=== PATIENT | male | born 1950 | race Caucasian/White ===

== ENCOUNTER 2023-09-27 07:55 | Emergency (ER) | payer BC, OTHER ==
[~2023-09-27] VITALS: Ht 167.6 cm; Wt 97.5 kg
[2023-09-27 08:01] VITALS: BP_SYST 154; PULSE 99; RESP 18; TEMP 96.8; O2SAT 97
[2023-09-27] MEDS: BACITRACIN 1 GM OINT TP ONE (09:35)
[2023-09-27 10:22] VITALS: BP_SYST 148; PULSE 95; RESP 18; TEMP 97.2; O2SAT 96
== END 2023-09-27 10:21 | disposition home or self-care (01) ==
LOC: SED 07:55
DX: S01.01XA Laceration without foreign body of scalp, initial encounter (principal); I10 Essential (primary) hypertension; W18.39XA Other fall on same level, initial encounter; Y93.89 Activity, other specified; Y92.89 Other specified places as the place of occurrence of the external cause; Y99.8 Other external cause status
CPT/HCPCS: 70450-TC; 99284